=== PATIENT | male | born 1950 | race Caucasian/White ===

== ENCOUNTER 2022-07-10 23:36 | Emergency (ER) | payer MEDICARE ==
[~2022-07-10] VITALS: Ht 172.7 cm; Wt 70.3 kg
--- NOTE | 2022-07-10 23:37 | NUR ---
SVT EKG, PATIENT IN SVT AND WHILE EDP WAS TALKING WITH PATIENT, PATIENT CONVERTED INTO SINUS RHYTHM WITHOUT TREATMENT @ [id number]
--- NOTE | 2022-07-10 23:46 | PCM.EKG ---
[facility] Test Date: 2022-07-10 Test Time: 23:37:17 Pat Name: YARITZA HEART Department: Room: Gender: M Sand Buffer: : 1950 Requested By: VANESSA RODARTE Order Number: [id number] Reading MD: Hood Rodarte Measurements Intervals [place] Rate: 157 P: 267 VT: 108 QRS: 73 QRSD: 117 T: 90 QT: 332 QTc: 537 Interpretive Statements Supraventricular tachycardia Ventricular premature complex Nonspecific intraventricular conduction delay Anteroseptal infarct, age indeterminate No previous ECG available for comparison Electronically Signed On 07-11-2022 0:25:06 CDT by Hood Rodarte Please click the below link to view image of tracing.
[2022-07-10] MEDS ORDERED: CARDIZEM IV STA (23:48)
[2022-07-10 23:49] VITALS: BP 156/98
[2022-07-10] MEDS ORDERED: ASPIRIN ONE (23:55)
[2022-07-10] MEDS ORDERED: CARDIZEM IV ONE (23:56)
--- NOTE | 2022-07-10 23:59 | ER.PDOC ---
General Chief Complaint: Palpitations Stated Complaint: L ARM PAIN Time seen by MD: 20:35 Source: patient Exam Limitations: no limitations History of Present Illness Initial Comments Patient is a 72-year-old male with a past medical history of [place] who presents with palpitations that woke him from his sleep about 30 minutes prior to arrival. Patient states that he was sleeping when he was awakened by palpitations. Patient denies any other associated symptoms such as chest pain shortness of breath nausea diaphoresis. However he just states that he has the uncomfortableness of the palpitations. Patient does not know what makes them better or worse and does not know what triggered them. Patient denies any other symptoms or complaints at this time Allergies: Coded Allergies: No Known Allergies (Unverified , 07/10/22) Past Medical History Medical History: cardiac problems Surgical History: stent Family History Significant Family History: no pertinent family hx Social History Smoking: quit greater than 1 year Alcohol Use: none Drug Use: none Reviewed Nursing Reviewed: Vital Signs, Abn. Noted, Nursing Assessment Constitutional: denies no symptoms reported, denies see HPI, denies chills, denies diaphoresis, denies fever, denies malaise, denies weakness, denies other EENTM: denies no symptoms reported, denies see HPI, denies eye pain, denies blurred vision, denies tearing, denies double vision, denies ear pain, denies ear discharge, denies nose pain, denies nose congestion, denies throat pain, denies throat swelling, denies mouth pain, denies mouth swelling, denies other Respiratory: denies no symptoms reported, denies see HPI, denies cough, denies orthopnea, denies shortness of breath, denies SOB with exertion, denies SOB at rest, denies stridor, denies wheezing, denies other Cardiovascular: irregular heart rate, palpitations Gastrointestinal: denies no symptoms reported, denies see HPI, denies abdomen distended, denies abdominal pain, denies blood streaked bowels, denies constipated, denies diarrhea, denies difficulty swallowing, denies nausea, denies poor appetite, denies poor fluid intake, denies rectal bleeding, denies vomiting, denies other Genitourinary: denies no symptoms reported, denies see HPI, denies burning, denies dysuria, denies discharge, denies frequency, denies flank pain, denies hematuria, denies incontinence, denies pain, denies urgency, denies other Musculoskeletal: denies no symptoms reported, denies see HPI, denies back pain, denies gout, denies joint pain, denies joint swelling, denies muscle pain, denies muscle stiffness, denies neck pain, denies other Skin: denies no symptoms reported, denies see HPI, denies change in color, denies change in hair/nails, denies dryness, denies lesions, denies lumps, denies rash, denies other Psychiatric/Neurological: denies no symptoms reported, denies see HPI, denies anxiety, denies depressed, denies emotional problems, denies headache, denies numbness, denies paresthesia, denies pre-existing deficit, denies seizure, denies tingling, denies tremors, denies weakness, denies other Endocrine: denies no symptoms reported, denies see HPI, denies excessive sweating, denies flushing, denies intolerance to cold, denies intolerance to heat, denies increased hunger, denies increased thrist, denies increased urine, denies unexplained weight gain, denies unexplaned weight loss, denies other Hematologic/Lymphatic: denies no symptoms reported, denies see HPI, denies anemia, denies blood clots, denies easy bleeding, denies easy bruising, denies swollen glands, denies other Physical Exam General Appearance: No Apparent Distress, WD/WN HEENT: PERRL/EOMI, Normal ENT Inspection, TMs Normal, Pharynx Normal Neck: Non-Tender, Full Range of Motion, Supple, Normal Inspection Respiratory: chest non-tender, lungs clear, normal breath sounds, no respiratory distress, no accessory muscle use Cardiovascular: Tachycardia Gastrointestinal: Normal Bowel Sounds, No Organomegaly, No Pulsatile Mass, Non Tender, Soft Extremities: Normal Range of Motion, Non-Tender, Normal Inspection, No Pedal Edema, No Calf Tenderness, Normal Capillary Refill Neurologic/Psychiatric: shank pinner II-XII NML as Tested, No Motor/Sensory Deficits, Alert, Normal Mood/Affect, Oriented x 3 Skin: Normal Color, Warm/Dry Lymphatic: No Adenopathy Results/Orders Results/Orders Orders - VANESSA ROSENBERG MD Cbc With Auto Diff (07/10/22 23:42) Comprehensive Metabolic Panel (07/10/22 23:42) Probnp B-Type Rotating Equipment Specialist (07/10/22 23:42) PT (07/10/22 23:42) Partial Thromboplastin Time. (07/10/22 23:42) D-Dimer (07/10/22 23:42) Xr Chest 1v (07/10/22 23:42) Ekg-Routine (07/10/22 23:42) Aspirin (Aspirin) (07/11/22 00:00) Saline Lock (07/10/22 23:42) Troponin I High Sensitivity (07/10/22 23:42) Diltiazem Hcl (Cardizem) (07/10/22 23:48) Aspirin (Aspirin) (07/10/22 23:55) Diltiazem Hcl (Cardizem) (07/10/22 23:56) Vital Signs Date Time Temp Pulse Resp B/P (MAP) Pulse Ox O2 Delivery O2 Flow Rate FiO2 07/10/22 23:49 97.9 157 16 95 07/10/22 23:49 97.9 157 16 156/98 (117) 95 Room Air* 0 21 07/10/22 23:49 97.9 157 16 Progress Progress Patient is here with palpitations as we were getting the EKG is showed SVT and patient literally self converted after we printed we reprinted another one blood patient will diltiazem and we will do a cardiac work-up to rule out any cause of the SVT including cardiac issues chest x-ray EKG we will give aspirin. 0101reassessmentpatient has remained in normal sinus will discharge after replacing his potassium will give him a cards number here he voiced understanding of when to return to the ER when to follow-up. pt already has metoprolol script ER DEPART Departure Time of Disposition: 01:01 Disposition: 01 HOME / SELF CARE / HOMELESS Impression: Primary Impression: Supraventricular tachycardia Condition: Improved Patient Instructions: Supraventricular Tachycardia Referrals: PCP,UNKNOWN (PCP) PRIMARY CARE PROVIDER Additional Instructions: Please follow-up with your primary care provider within 1 week as well as your pediatrics hospitalist within 1 week. If you need a pediatrics hospitalist here you can call Dr. Hogan At [phone] to set up an appointment. If you have any new persistent or worsening symptoms or concerns please seek emergent medical attention. Duration or Time Spent with Pa: 45 VANESSA ROSENBERG MD Jul 10, 2022 23:59
[2022-07-11] MEDS ORDERED: ASPIRIN PO PRN
[2022-07-11 00:06] LABS: BASOPHIL # 0.1 10^3/uL (0.0-0.1); BASOPHIL % 0.6 % (0.0-0.2); EOSINOPHIL # 0.5 10^3/uL (0.0-0.2); EOSINOPHIL % 4.6 % (0.0-5.0); LYMPHOCYTES # 3.42 10^3/uL1 (1.0-4.8); LYMPHOCYTES % 34.5 % (24.0-44.0); MEAN CORP HGB 30.2 pg (26-34); MONOCYTES # 0.7 10^3/uL (0.3-0.8); MONOCYTES % 6.6 % (5.0-12.0); NEUTROPHIL # 5.3 10^3/uL (1.8-7.7); NEUTROPHILS % 53.7 % (41.0-85.0); PLATELET COUNT 259 10^3/uL (150-400); RED CELL DISTRIBUTION WIDTH 12.8 % (11.5-14.5)
[2022-07-11 00:10] VITALS: BP 151/87
--- NOTE | 2022-07-11 00:12 | DIREP ---
PROCEDURE:CHEST 1 VIEW COMPARISON:None. INDICATIONS:Chest pain FINDINGS: LUNGS/PLEURA:Appearance of the pulmonary markings may suggest underlying structural lung disease, COPD or emphysema. No confluent pulmonary infiltrate. No effusions. No pneumothorax. VASCULATURE:Unremarkable pulmonary vasculature. CARDIAC:No cardiac silhouette abnormality or cardiomegaly. MEDIASTINUM:No visible mass or adenopathy. BONES:No fracture or visible bony lesion. OTHER:Negative. CONCLUSION: 1. Possible underlying structural lung disease, COPD or emphysema. No confluent pulmonary infiltrate. Dictated by: Meredith Darden MD on 07/11/2022 at 00:10 AM
[2022-07-11 00:23] LABS: CARBON DIOXIDE 27.7 mmol/L (20.0-32)
[2022-07-11] MEDS ORDERED: POTASSIUM CHLORIDE PO STA (01:00)
[2022-07-11] MEDS ORDERED: POTASSIUM CHLORIDE ONE (01:07)
--- NOTE | 2022-07-11 01:21 | NUR ---
IV DC'D TIP INTACT, NO BLEEDING
[2022-07-11 01:22] VITALS: BP 128/81
--- NOTE | 2022-07-11 10:35 | PCM.EKG ---
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
== END 2022-07-11 01:22 | disposition home or self-care (01) ==
LOC: ER 23:36
DX: I47.1 Supraventricular tachycardia (principal)
CPT/HCPCS: 99285; 71045; 80053; 85025; 36415; 85379; 84484; 83880; 85610; 85730; 93005 ×2; 96374; J3490

== ENCOUNTER → 2022-09-17 | Outpatient (CLI) | payer MEDICARE ==
[2022-09-17 09:02] LABS: BASOPHIL # 0.1 10^3/uL (0.0-0.1); BASOPHIL % 0.9 % (0.0-0.2); EOSINOPHIL # 0.4 10^3/uL (0.0-0.2); EOSINOPHIL % 4.8 % (0.0-5.0); LYMPHOCYTES # 1.92 10^3/uL1 (1.0-4.8); LYMPHOCYTES % 24.3 % (24.0-44.0); MONOCYTES # 0.5 10^3/uL (0.3-0.8); MONOCYTES % 6.7 % (5.0-12.0); PLATELET COUNT 270 10^3/uL (150-400); RED CELL DISTRIBUTION WIDTH 13.1 % (11.5-14.5)
[2022-09-17 09:26] LABS: CARBON DIOXIDE 31.5 mmol/L (20.0-32)
== END | disposition home or self-care (01) ==
LOC: LAB 08:40
DX: I42.9 Cardiomyopathy, unspecified (principal); R53.83 Other fatigue; E78.2 Mixed hyperlipidemia
CPT/HCPCS: 36415; 80053; 80061; 84443; 85025